=== PATIENT | male | born 1985 | race Caucasian/White ===

== ENCOUNTER 2018-06-08 13:52 | Emergency (ER) | payer OTHER ==
[2018-06-08] MEDS ORDERED: LIDOCAINE 1% (MDV) 20 ML INJ SC (15:00)
[2018-06-08] MEDS: LIDOCAINE 1% (MPF) 5 ML VIAL SC (15:03)
[2018-06-08] MEDS: TRIMETHOPRIM/SULFAMETHOX (DS) TAB PO (16:45)
[2018-06-08] MEDS: CEPHALEXIN 500 MG CAP PO (16:45)
== END 2018-06-08 16:55 | disposition home or self-care (01) ==
LOC: FTE 13:52
DX: L02.512 Cutaneous abscess of left hand (principal); J45.909 Unspecified asthma, uncomplicated
CPT/HCPCS: 10060; 73140; 99283-25